=== PATIENT | female | born 1995 | race Two or more races ===

== ENCOUNTER 2018-08-11 16:32 | Emergency (ER) | payer OTHER ==
[2018-08-11 16:48] VITALS: BP 104/82
--- NOTE | 2018-08-11 17:17 | EDPHY ---
H & P Stated Complaint: Dropped backpack on right thumb x 2 days ago Source: Patient Exam Limitations: No limitations - Personal History LMP (Females 10-55): Now Current Tetanus Diphtheria and Acellular Pertussis (TDAP): Yes - Medical/Surgical History Hx Asthma: Yes Hx Chronic Respiratory Disease: No Hx Diabetes: No Hx Cardiac Disease: No Hx Renal Disease: No Hx Cirrhosis: No Hx Alcoholism: No Hx HIV/AIDS: No Hx Splenectomy or Spleen Trauma: No Other PMH: denies - Social History Smoking Status: Never smoked Time Seen by Provider: 08/11/18 17:16 HPI/ROS: HPI: This is a 23-year-old female who presents with Chief Complaint: Dropped backpack on right thumb x 2 days ago Location: Right thumb Quality: Injury Duration: 2 days ago Signs and Symptoms: No bleeding, no radiation, no numbness, no weakness, no tingling, no incontinence, no decreased range of motion, no swelling, + pain, no fever Timing: Acute Severity: [id number] Context: Patient is right-hand dominant, student at [employer], presents with accidentally having her right thumb hyperextended wall dropping her backpack off of her shoulder. Injury occurred approximately 2 days ago. She denies any decreased range of motion but reports a flexion extension cause increased pain near the MCP joint. Has not applied ice or taking [id number] pain control medications. She is extremely concerned as she has a project into mid terms next week. Denies radiation, weakness, paresthesias, decreased range of motion. Modifying Factors: None Comment: ROS: A comprehensive 10 system review of systems is otherwise negative aside from elements mentioned in the history of present illness. MEDICAL/SURGICAL/SOCIAL HISTORY: Medical history: Generally healthy. Does not take any regular medications. Surgical history: Denies Social history: Never smoked. CONSTITUTIONAL: Polite and cooperative, well-developed and well-nourished, young adult [place] female,awake and alert, no obvious distress HEENT: Atraumatic and normocephalic. NECK: supple EXTREMITIES: 2/2 pulses, strength 5/5, right WRIST: Extension to 70, flexion to 80, radial deviation to 20 degree, ulnar deviation to 30, no scaphoid tenderness, no tenderness over ulnar styloid, no tenderness over radial styloid , moderate pain with Javier test, no pain with Phalen test, no pain with Tinel test.DIP/PIP/MCP flexion/extension intact with good light touch sensation. no deformities, no clubbing, no cyanosis or edema. NEUROLOGICAL: no focal neuro deficits. GCS 15. Light touch sensation intact. SKIN: Warm and dry, no erythema. no rash. Good capillary refill. (Kandace Hicks) Constitutional: Initial Vital Signs Temperature (C) 36.7 C 08/11/18 16:44 Heart Rate 85 08/11/18 16:44 Respiratory Rate 16 08/11/18 16:44 Blood Pressure 104/82 H 08/11/18 16:44 O2 Sat (%) 97 08/11/18 16:44 O2 Delivery Mode Room Air Allergies/Adverse Reactions: No Known Allergies Allergy (Unverified 08/11/18 16:44) Home Medications: Medication Instructions Recorded NK [No Known Home Meds] 08/11/18 Medical Decision Making Procedures: Procedure: Splint placement. A right Velcro thumb spica splint was applied the Emergency Room mobile service rv technician. After application of the splint I returned and re-examined the patient. The splint was adequately immobilizing the joint and distal to the splint the patient's circulation and sensation was intact. (Kandace Hicks) ED Course/Re-evaluation: Vital signs reviewed and stable upon arrival. Right thumb x-ray my read via PAC shows no fracture, dislocation. Reviewed x-rays at bedside with patient. Suspect tendon sprain. Placed in thumb spica splint, supportive care, Ortho Hand follow-up if needed School note provided per request. No signs of neurovascular compromise/tenting of skin/compartment syndrome/ extremities and joints examined above and below area of concern and are neurovascularly intact. This patient was seen under the supervision of my secondary supervising physician. I evaluated care for this patient independently. Discussed this patient with Dr. Bhatti. (Kandace Hicks) This patient was evaluated and managed by the PA. I agree with the plan of care. I am the secondary supervising physician. (Cristina Bhatti) Differential Diagnosis: Differential diagnosis includes but is not limited to thumb fracture, scaphoid fracture, extensor tendon injury, flexor tendon injury, nerve injury. (Kandace Hicks) Departure - Departure Disposition: Home, Routine, Self-Care Clinical Impression: Sprain of right thumb Condition: Good Instructions: Skier's Thumb (ED) Additional Instructions: Wear the splint while out of bed until pain free. Take Tylenol 650 mg every 4 hours and/or Ibuprofen 600 mg every 8 hours with food as needed for pain. Apply ice for 30 minutes at a time; 2-3 times per day for the next 1-2 days. Follow up with Orthopedics in 7-10 days if symptoms persist at which time they will evaluate and recommend with you if conservative management versus further imaging is indicated. The x-rays obtained in the emergency department today demonstrate no evidence of an obvious fracture. Sometimes fractures are not obvious on the initial set of x-rays performed in the ED. For this reason, you should have repeat x-rays performed in 7-10 days if you are having any pain exclude the possibility of an occult fracture. Referrals: Patti Sandy MD [Medical Doctor] - As per Instructions Stand Alone Forms: Work Limited Duty
== END 2018-08-11 17:30 | disposition home or self-care (01) ==
DX: S63.601A Unspecified sprain of right thumb, initial encounter (principal); X50.9XXA Other and unspecified overexertion or strenuous movements or postures, initial encounter; Y92.9 Unspecified place or not applicable; Y93.9 Activity, unspecified; Y99.9 Unspecified external cause status
CPT/HCPCS: L3807

== ENCOUNTER 2018-12-05 18:09 | Emergency (ER) | payer OTHER ==
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
[2018-12-05] MEDS ORDERED: ONDANSETRON 4 MG/2 ML VIAL IVP ONE (18:40)
[2018-12-05] MEDS ORDERED: NS 1,000 ML IV ONE (18:40)
[2018-12-05 19:14] LABS: PLATELET COUNT 318 10^3/uL (150-400)
[2018-12-05] MEDS ORDERED: MAG HYDROX/AL HYDROX/SIMETH 30 ML UDCUP PO ONE (19:43)
[2018-12-05] MEDS ORDERED: HYOSCYAMINE SULFATE 0.125 MG TAB PO ONE (19:43)
[2018-12-05] MEDS ORDERED: LIDOCAINE 2% VISCOUS 15 ML UDCUP PO ONE (19:43)
[2018-12-05] MEDS ORDERED: ONDANSETRON 4MG PREPACK#2 BTL TAKEHOME ONE ×2 (20:30)
[2018-12-05 20:36] VITALS: BP 118/80
--- NOTE | 2018-12-05 22:42 | CPEKG ---
Test Reason : OPEN Blood Pressure : / mmHG Vent. Rate : 080 BPM Atrial Rate : 078 BPM P-R Int : 126 ms QRS Dur : 083 ms QT Int : 366 ms P-R-T Axes : 002 009 036 degrees QTc Int : 423 ms Sinus rhythm Confirmed by Leandra Lua ([id number]) on 12/05/2018 10:41:50 PM Referred By: Leandra Lua Confirmed By:Leandra Lua
== END 2018-12-05 20:36 | disposition home or self-care (01) ==
DX: R55 Syncope and collapse (principal); E86.9 Volume depletion, unspecified
CPT/HCPCS: 96374; J2405